=== PATIENT | male | born 1995 | race Caucasian/White ===

== ENCOUNTER 2016-12-17 06:35 | Emergency (ER) | payer BC, OTHER ==
[2016-12-17] MEDS ORDERED: HYDROmorphone 2 MG/1 ML IVP ONE (06:49)
[2016-12-17] MEDS ORDERED: Sodium Chloride 0.9% 1,000 ML PRIMARY IV ONE (06:50)
[2016-12-17] MEDS ORDERED: HYDROmorphone 2 MG/1 ML ONE (06:52)
[2016-12-17 06:57] VITALS: RESP 18
[2016-12-17] MEDS ORDERED: Bacitracin Oint 14.2 gm tube 14 APPLIC/14.2 GM TUBE TOPICAL ONE (07:20)
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
[2016-12-17 08:33] VITALS: TEMP 97
== END 2016-12-17 08:20 | disposition home or self-care (01) ==
LOC: ER 06:35
DX: T20.27XA Burn of second degree of neck, initial encounter (principal); T20.211A Burn of second degree of right ear [any part, except ear drum], initial encounter; T23.262A Burn of second degree of back of left hand, initial encounter; T23.261A Burn of second degree of back of right hand, initial encounter; X08.8XXA Exposure to other specified smoke, fire and flames, initial encounter; Y92.65 Oil rig as the place of occurrence of the external cause; Y99.0 Civilian activity done for income or pay
CPT/HCPCS: 96361; 96374; 99283; J1170